=== PATIENT | female | born 1995 | race Two or more races ===

== ENCOUNTER 2017-08-11 19:30 | Emergency (ER) | payer OTHER ==
[~2017-08-11] VITALS: Ht 165.1 cm; Wt 59.0 kg
[2017-08-11 20:03] VITALS: BP 108/72
[2017-08-11] MEDS ORDERED: HYDROCORTISONE 2.5% TOPICAL CREAM 30GM TUBE TOP ONE (23:30)
[2017-08-11] MEDS ORDERED: methylPREDNISolone SOD SUCC 125 MG/2 ML VL IM ONE (23:30)
== END 2017-08-12 00:07 | disposition home or self-care (01) ==
LOC: ER 19:30
DX: R21 Rash and other nonspecific skin eruption (principal)
CPT/HCPCS: 96372; 99283; J2930